=== PATIENT | female | born 1935 | race Two or more races ===

== ENCOUNTER 2020-03-05 11:56 | Inpatient (IN) | payer OTHER ==
[~2020-03-05] VITALS: Ht 152.4 cm; Wt 54.4 kg
[~2020-03-05 11:56] MED LIST: ATORVASTATIN CA20 MG PO; COZAAR100 MG PO; DILTIA PO; HYDROCHLOROTH12.5 MG PO; RECTICARE30 GM TP; ULTRACET PO
[2020-03-06] MEDS ORDERED: DILTIAZEM ER240 M2 (13:47)
== END 2020-03-07 15:48 | disposition home or self-care (01) | DRG 349 ==
LOC: SURH 03-06 07:24 → O/R 03-06 09:53 → SURG 03-06 09:53 → SURH 03-06 12:45 → SURG 03-06 16:13
PROVIDERS: ADMIT Surgery; ATTEND Surgery
PROC: 0DUR0JZ Supplement Anal Sphincter with Synthetic Substitute, Open Approach (ICD-10-PCS; 2020-03-06)
PROC: 0UQF7ZZ Repair Cul-de-sac, Via Natural or Artificial Opening (ICD-10-PCS; 2020-03-06)
PROC: 0DBP7ZZ Excision of Rectum, Via Natural or Artificial Opening (ICD-10-PCS; principal; 2020-03-06 12:45)
DX: K62.3 Rectal prolapse (principal); N81.5 Vaginal enterocele; Z20.828 Contact with and (suspected) exposure to other viral communicable diseases

== ENCOUNTER 2021-02-26 11:18 | Inpatient (IN) | payer OTHER ==
[~2021-02-26] VITALS: Ht 157.5 cm; Wt 61.7 kg
[~2021-02-26 11:18] MED LIST changes: +DILTIAZEM ER240 M2
[2021-02-27] MEDS ORDERED: HYDROCHLOROTHIA25 MG (14:24)
[2021-03-01] MEDS ORDERED: LEVSIN/SL0.125 MG SL (14:35)
[2021-03-01] MEDS ORDERED: INTESTINEX680 M1 PO (14:35)
== END 2021-03-01 15:46 | disposition home or self-care (01) | DRG 330 ==
LOC: CIR.AMB 11:18 → SURG 02-27 00:44
PROVIDERS: ADMIT Surgery; ATTEND Surgery
PROC: 0DTN4ZZ Resection of Sigmoid Colon, Percutaneous Endoscopic Approach (ICD-10-PCS; principal; 2021-02-27)
PROC: 0DTP4ZZ Resection of Rectum, Percutaneous Endoscopic Approach (ICD-10-PCS; 2021-02-27)
PROC: 0DQP8ZZ Repair Rectum, Via Natural or Artificial Opening Endoscopic (ICD-10-PCS; 2021-02-27)
PROC: 0DJD8ZZ Inspection of Lower Intestinal Tract, Via Natural or Artificial Opening Endoscopic (ICD-10-PCS; 2021-02-27)
PROC: 3E0F7SF Introduction of Other Gas into Respiratory Tract, Via Natural or Artificial Opening (ICD-10-PCS; 2021-02-27)
DX: K62.3 Rectal prolapse (principal); K56.1 Intussusception; N81.5 Vaginal enterocele; K57.30 Diverticulosis of large intestine without perforation or abscess without bleeding; K59.02 Outlet dysfunction constipation; N73.6 Female pelvic peritoneal adhesions (postinfective); Z20.822 Contact with and (suspected) exposure to COVID-19

== ENCOUNTER 2022-04-23 08:45 | Inpatient (IN) | payer OTHER ==
[~2022-04-23] VITALS: Ht 152.4 cm; Wt 54.4 kg
[~2022-04-23 08:45] MED LIST changes: +HYDROCHLOROTHIA25 MG; +INTESTINEX680 M1 PO; +LEVSIN/SL0.125 MG SL
[2022-05-01] MEDS ORDERED: PERCOCET 10-321 EACH PO (09:01)
[2022-05-01] MEDS ORDERED: PERCOCET 5-3251 EACH PO (09:20)
[2022-05-01] MEDS ORDERED: LEVSIN/SL0.125 MG SL (09:21)
== END 2022-05-01 14:49 | disposition home or self-care (01) | DRG 331 ==
LOC: SURH 04-29 08:45 → O/R 04-29 10:33 → SURH 04-29 15:30
PROVIDERS: ADMIT Surgery; ATTEND Surgery
PROC: 0USG4ZZ Reposition Vagina, Percutaneous Endoscopic Approach (ICD-10-PCS; 2022-04-29)
PROC: 0DQP4ZZ Repair Rectum, Percutaneous Endoscopic Approach (ICD-10-PCS; principal; 2022-04-29 08:45)
DX: K62.3 Rectal prolapse (principal); K57.30 Diverticulosis of large intestine without perforation or abscess without bleeding; Z20.822 Contact with and (suspected) exposure to COVID-19